=== PATIENT | female | born 1990 | race Caucasian/White ===

== ENCOUNTER 2017-06-15 13:58 | Emergency (ER) | payer MEDICAID ==
--- NOTE | 2017-06-15 14:52 | ED Physician Documentation ---
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 06/15/17 - Allergies Allergies/Adverse Reactions: Allergies Allergy/AdvReac Type Severity Reaction Status Date / Time sulfamethoxazole Allergy Unknown Verified 06/15/17 14:06 [From ] trimethoprim [From ] Allergy Unknown Verified 06/15/17 14:06 zecor Allergy Unknown Uncoded 06/15/17 14:06 - Social History Does the pt smoke?: Yes Smoking Status: Current every day smoker Does the pt drink ETOH?: Yes Does the pt have substance abuse?: No - Immunizations Immunizations are current?: No Immunizations: Other immun current PD ED PE NORMAL - Vitals Vital signs reviewed: Yes - Cardiac Cardiac: RRR, No murmur - Respiratory Respiratory: No respiratory distress, Clear bilaterally - Extremities Extremities: Other (numerous small scabbed papules to chin upper chest, to R ear lobe there is a more crusted lesion somewhat c/w impetigo) Results - Vitals Vitals: Vital Signs - 24 hr 06/15/17 14:03 Temperature 36.3 C L Heart Rate 99 Respiratory 18 Rate Blood Pressure 119/81 H O2 Saturation 100 Oxygen O2 Source Room air Departure - Departure Disposition: Home, Self Care Clinical Impression: Impetigo Condition: Good Instructions: ED Impetigo Ch Follow-Up: [facility] [Provider Group] (if not better with the antibiotic cream ) Prescriptions: Mupirocin Calcium [Bactroban] 1 applic TP BID #30 cream..g. Comments: Do not pick at the bumps or try to squeeze material out of them - that can introduce more infection. Gently wash the areas with warm water and soap. If possible avoid covering the bumps with makeup
[2017-06-15 15:15] VITALS: BP 126/73
== END 2017-06-15 15:49 | disposition home or self-care (01) ==
LOC: ED 13:58
DX: L01.00 Impetigo, unspecified (principal); F17.200 Nicotine dependence, unspecified, uncomplicated
CPT/HCPCS: 99283

== ENCOUNTER 2017-11-07 18:42 | Emergency (ER) | payer OTHER, MEDICAID ==
[2017-11-07 19:27] LABS: HCG UR QUAL NEGATIVE
[2017-11-07] MEDS ORDERED: ONDANSETRON ODT 4 MG TABLET TL STA (20:20)
[2017-11-07] MEDS ORDERED: cefTRIAXone 500 MG VIAL IM STA (20:20)
[2017-11-07] MEDS ORDERED: LIDOCAINE 1% 2 ML VIAL SUBQ ONE (20:20)
[2017-11-07] MEDS ORDERED: AZITHROMYCIN 250 MG TABLET PO STA (20:20)
[2017-11-07 20:45] LABS: MUDS CUTOFF CONCENTRATIONS CUTOFF CONC BELOW:
[2017-11-07] MEDS ORDERED: lamiVUDine/ZIDOVUDINE 150 MG/300 MG Prepack 2 PO SCH (21:00)
[2017-11-07 21:12] LABS: AMPHETAMINE SCREEN,URINE POSITIVE (NEGATIVE); BENZODIAZEPINES SCREEN, URINE NEGATIVE (NEGATIVE); COCAINE SCREEN URINE NEGATIVE (NEGATIVE); METHAMPHETAMINES SCREEN, URINE NEGATIVE (NEGATIVE); OPIATE SCREEN, URINE NEGATIVE (NEGATIVE); TRICYCLIC ANTIDEPRESSANT,URINE NEGATIVE (NEGATIVE)
[2017-11-07 21:13] LABS: METHADONE SCREEN, URINE NEGATIVE (NEGATIVE); OXYCODONE SCREEN, URINE NEGATIVE (NEGATIVE); PROPOXYPHENE SCREEN, URINE NEGATIVE (NEGATIVE)
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
[2017-11-07 22:22] VITALS: BP 133/83
[2017-11-09 13:16] LABS: HIV AG/AB 4TH GEN NON-REACTIVE (NON-REACTIVE)
== END 2017-11-07 22:46 | disposition home or self-care (01) ==
LOC: ED 18:42
DX: S10.93XA Contusion of unspecified part of neck, initial encounter (principal); T76.21XA Adult sexual abuse, suspected, initial encounter; J45.909 Unspecified asthma, uncomplicated
CPT/HCPCS: 0131C; 0132C; 36415; 80306; 81025; 87389; 87491; 87591; 96372; A9270; Q0162; 99283

== ENCOUNTER 2018-11-02 14:02 | Outpatient (CLI) | payer MEDICAID | END 2018-11-02 14:03 | disposition critical access hospital (66) | LOC: EMS 14:02 | PROVIDERS: ATTEND Surgery | DX: R46.89 Other symptoms and signs involving appearance and behavior (principal); R41.82 Altered mental status, unspecified | CPT/HCPCS: A0425; A0429; A0999 ==

== ENCOUNTER 2018-11-02 14:31 | Emergency (ER) | payer MEDICAID, OTHER ==
[2018-11-02 15:04] LABS: MUDS CUTOFF CONCENTRATIONS CUTOFF CONC BELOW:
[2018-11-02 15:07] LABS: GLUCOSE, URINE (UA) NEGATIVE (NEGATIVE); KETONES,URINE (UA) NEGATIVE (NEGATIVE); LEUKOCYTE ESTERASE, URINE NEGATIVE (NEGATIVE); NITRITE,URINE NEGATIVE (NEGATIVE); OCCULT BLOOD,URINE LARGE (NEGATIVE); PH,URINE 5.5 PH (5.0-7.5); PROTEIN,URINE 30 mg/dL (NEGATIVE); UROBILINOGEN,URINE 0.2 (NORMAL) E.U./dL (NORMAL)
--- NOTE | 2018-11-02 15:08 | ED Physician Documentation ---
PD HPI MHE - Stated complaint Stated Complaint: MHE - Chief complaint Chief Complaint: MHE - History obtained from History obtained from: Patient - History of Present Illness Primary symptom: Psychosis (not sleeping; ungroomed; erratic behavior per report. [place] PD brought her in feeling she was unable to care for herself. Pt denies psych history, but has been to drug rehab before and states meth use couple days ago and somewhat often prior to that.) Timing - onset: How many days ago (several) Contributing factors: Substance abuse - drugs, Other (It does sound like she has had a longer history of depression and some erratic behavior even unrelated to the current meth use. Unclear whether she has an underlying psychiatric disorder.) Recently seen: Not recently seen Review of Systems Constitutional: denies: Fever Nose: denies: Rhinorrhea / runny nose, Congestion Throat: denies: Sore throat Respiratory: denies: Cough GI: denies: Nausea, Vomiting : denies: Dysuria Neurologic: denies: Generalized weakness, Focal weakness, Numbness, Altered mental status (she says she is feeling okay without problems.), Headache, Head injury PD PAST MEDICAL HISTORY - Past Medical History Respiratory: Asthma Psych: None (reportedly from Mom, her issues have been substance abuse and has not had psych Dx. 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 - Present Medications Home Medications: Ambulatory Orders Medication Instructions Recorded Confirmed Etonogestrel [Nexplanon] 11/07/17 lamiVUDine/ZIDOVUDINE [Combivir] 1 each PO BID #60 tablet 11/07/17 - Allergies Allergies/Adverse Reactions: Allergies Allergy/AdvReac Type Severity Reaction Status Date / Time sulfamethoxazole Allergy Unknown Verified 11/02/18 14:48 [From ] trimethoprim [From ] Allergy Unknown Verified 11/02/18 14:48 zecor Allergy Unknown Uncoded 06/15/17 14:06 - Social History Does the pt smoke?: Yes Smoking Status: Current every day smoker Does the pt drink ETOH?: Yes Does the pt have substance abuse?: Yes Substance Use and Type: Marijuana, Meth, Heroin - Immunizations Immunizations are current?: No Immunizations: Other immun current PD ED PE NORMAL - Vitals Vital signs reviewed: Yes - General General: Alert and oriented X 3, No acute distress (seems elated and overly happy), Well developed/nourished - HEENT HEENT: Atraumatic - Neck Neck: Supple, no meningeal sign, No adenopathy - Cardiac Cardiac: RRR - Respiratory Respiratory: Clear bilaterally - Abdomen Abdomen: Soft, Non tender - Back Back: No CVA TTP - Derm Derm: Normal color, Warm and dry - Neuro Neuro: Alert and oriented X 3, No motor deficit, No sensory deficit, Normal speech - Psych Psych: No: Normal affect (elated and overly happy, seems to not understand the reasons for police concern/family concern. She feels she does not have current problem. Rather tangential thought process, with confucianism intrusion ("I just let the Lord guide me" or such). Wanting to leave ER but without plan of where she is going or how she would get to anyplace. Not aware of the day of the week. Not clearly safe.) Results - Vitals Vitals: Vital Signs - 24 hr 11/02/18 11/02/18 14:30 21:20 Temperature 36.7 C Heart Rate 88 84 Respiratory 18 16 Rate Blood Pressure 120/86 H 139/79 H O2 Saturation 100 99 Oxygen O2 Source Room air - Labs Labs: Laboratory Tests 11/02/18 11/02/18 11/02/18 14:55 14:55 15:11 WBC 7.2 RBC 4.46 Hgb 13.4 Hct 39.4 MCV 88.3 MCH 29.9 MCHC 33.9 RDW 13.0 Plt Count 294 MPV 7.6 L Neut # (Auto) 3.4 Lymph # (Auto) 2.9 Long # (Auto) 0.6 Eos # (Auto) 0.3 Baso # (Auto) 0.1 Absolute Nucleated RBC 0.00 Nucleated RBC % 0.0 Sodium Potassium Chloride Carbon Dioxide Anion Gap BUN Creatinine Estimated GFR (MDRD) Glucose Calcium Total Bilirubin AST ALT Alkaline Phosphatase Total Protein Albumin Globulin Albumin/Globulin Ratio Lipase TSH Urine Color BROWN Urine Clarity HAZY Urine pH 5.5 Ur Specific [place] 1.025 1.025 Urine Protein 30 H Urine Glucose (UA) NEGATIVE Urine Ketones NEGATIVE Urine Occult Blood LARGE H Urine Nitrite NEGATIVE Urine Bilirubin NEGATIVE Urine Urobilinogen 0.2 (NORMAL) Ur Leukocyte Esterase NEGATIVE Urine RBC TNTC H Urine WBC 0-3 Ur Squamous Epith Cells RARE Squamous Urine Bacteria None Seen Urine Mucus Moderate Strands Ur Microscopic Review INDICATED Urine Culture Comments NOT INDICATED Urine HCG, Qual NEGATIVE Salicylates Urine Opiates Screen NEGATIVE Ur Oxycodone Screen NEGATIVE Urine Methadone Screen NEGATIVE Ur Propoxyphene Screen NEGATIVE Acetaminophen Ur Barbiturates Screen NEGATIVE Ur Tricyclics Screen NEGATIVE Ur Phencyclidine Scrn NEGATIVE Ur Amphetamine Screen POSITIVE H U Methamphetamines Scrn POSITIVE H U Benzodiazepines Scrn NEGATIVE Urine Cocaine Screen NEGATIVE U Cannabinoids Screen POSITIVE H Ethyl Alcohol 11/02/18 11/02/18 15:11 15:11 WBC RBC Hgb Hct MCV MCH MCHC RDW Plt Count MPV Neut # (Auto) Lymph # (Auto) Long # (Auto) Eos # (Auto) Baso # (Auto) Absolute Nucleated RBC Nucleated RBC % Sodium 142 Potassium 3.8 Chloride 108 Carbon Dioxide 24 Anion Gap 10.0 BUN 11 Creatinine 0.8 Estimated GFR (MDRD) 85 L Glucose 83 Calcium 9.2 Total Bilirubin 1.2 H AST 21 ALT 18 Alkaline Phosphatase 53 Total Protein 7.0 Albumin 4.1 Globulin 2.9 Albumin/Globulin Ratio 1.4 Lipase 24 TSH 1.25 Urine Color Urine Clarity Urine pH Ur Specific [place] Urine Protein Urine Glucose (UA) Urine Ketones Urine Occult Blood Urine Nitrite Urine Bilirubin Urine Urobilinogen Ur Leukocyte Esterase Urine RBC Urine WBC Ur Squamous Epith Cells Urine Bacteria Urine Mucus Ur Microscopic Review Urine Culture Comments Urine HCG, Qual Salicylates < 6.0 Urine Opiates Screen Ur Oxycodone Screen Urine Methadone Screen Ur Propoxyphene Screen Acetaminophen < 10 L Ur Barbiturates Screen Ur Tricyclics Screen Ur Phencyclidine Scrn Ur Amphetamine Screen U Methamphetamines Scrn U Benzodiazepines Scrn Urine Cocaine Screen U Cannabinoids Screen Ethyl Alcohol < 5.0 PD MEDICAL DECISION MAKING - ED course Complexity details: reviewed results, considered differential (There is recent drug use and some of her symptoms certainly are probably from meth. It is unclear whether she has underlying schizoaffective disorder as she describes some depression and she does have some tangentiality and scattered thought that acts like it as well. She is brought in on a please hold for evaluation. Social work saw the patient and is unclear on her ability to care for herself at this point. She contacted the [facility] and the [facility] P will be dispatched for evaluation of the patient with potential for even dual diagnosis facility.), d/w patient, d/w business sales consultant (SW talked with patient and concerned about safety, and also there are components of her thoguth process that seem psychiatric and not just substance. Asks DMHP input and assessment. ) ED course: [place], DMHP, feels patient is not detainable. Hard to tell if some underlying psych component, but not gravely disabled. Mom contacted and she would berry picker patient (rather than going back to boyfriends house and the same drug use right now). Departure - Departure Disposition: 01 Home, Self Care Clinical Impression: Methamphetamine use, Hypomania Condition: Stable Instructions: ED Drug Abuse General Comments: Avoid drug use. Stay well hydrated. Seek help for drug use treatment. Discharge Date/Time: 11/02/18 22:58
[2018-11-02 15:15] LABS: BILIRUBIN,URINE NEGATIVE (NEGATIVE); CLARITY,URINE HAZY (CLEAR); ICTOTEST,URINE NEGATIVE
[2018-11-02 15:16] LABS: AMPHETAMINE SCREEN,URINE POSITIVE (NEGATIVE); BENZODIAZEPINES SCREEN, URINE NEGATIVE (NEGATIVE); COCAINE SCREEN URINE NEGATIVE (NEGATIVE); METHADONE SCREEN, URINE NEGATIVE (NEGATIVE); METHAMPHETAMINES SCREEN, URINE POSITIVE (NEGATIVE); OPIATE SCREEN, URINE NEGATIVE (NEGATIVE); TRICYCLIC ANTIDEPRESSANT,URINE NEGATIVE (NEGATIVE)
[2018-11-02 15:17] LABS: OXYCODONE SCREEN, URINE NEGATIVE (NEGATIVE); PROPOXYPHENE SCREEN, URINE NEGATIVE (NEGATIVE)
[2018-11-02 15:22] LABS: BACTERIA,URINE None Seen /HPF (None Seen); MUCUS,URINE Moderate Strands; RBC,URINE TNTC /HPF (0-5); SQUAMOUS EPITHELIAL CELL,UR RARE Squamous (<= Few)
[2018-11-02 15:45] LABS: BASOPHILS # (AUTO) 0.1 10^3/uL (0.0-0.1); BASOPHILS % (AUTO) 0.9 %; EOSINOPHILS # (AUTO) 0.3 10^3/uL (0.0-0.7); EOSINOPHILS % (AUTO) 3.7 %; HGB - HEMOGLOBIN 13.4 g/dL (12.0-16.0); LYMPHOCYTES # (AUTO) 2.9 10^3/uL (1.5-3.5); LYMPHOCYTES % (AUTO) 40.3 %; MEAN CORPUSCULAR HEMOGLOBIN 29.9 pg (27.0-31.0); MEAN CORPUSCULAR HGB CONC 33.9 g/dL (32.0-36.0); MEAN CORPUSCULAR VOLUME 88.3 fL (81.0-99.0); MEAN PLATELET VOLUME 7.6 fL (7.9-10.8); MONOCYTES # (AUTO) 0.6 10^3/uL (0.0-1.0); NEUTROPHILS # (AUTO) 3.4 10^3/uL (1.5-6.6); NEUTROPHILS % (AUTO) 47.1 %; PLT - PLATELET COUNT 294 10^3/uL (130-450); RED BLOOD COUNT 4.46 10^6/uL (4.20-5.40); WHITE BLOOD COUNT 7.2 x10^3/uL (4.8-10.8)
[2018-11-02] MEDS ORDERED: LORazepam 0.5 MG TABLET PO STA (16:01)
[2018-11-02 16:05] LABS: ACETAMINOPHEN < 10 ug/mL (10-30); ALBUMIN 4.1 g/dL (3.2-5.5); ALBUMIN/GLOBULIN RATIO 1.4 (1.0-2.2); ALKALINE PHOSPHATASE 53 IU/L (42-121); ALT ALANINE AMINOTRANSFERASE 18 IU/L (10-60); AST ASPARTATE AMINOTRANSFERASE 21 IU/L (10-42); BILIRUBIN,TOTAL 1.2 mg/dL (0.2-1.0); BUN - BLOOD UREA NITROGEN 11 mg/dL (6-20); CALCIUM 9.2 mg/dL (8.5-10.3); CARBON DIOXIDE - CO2 24 mmol/L (21-32); CHLORIDE 108 mmol/L (101-111); CREATININE 0.8 mg/dL (0.4-1.0); GFR - MDRD 85 (>89); GLUCOSE 83 mg/dL (70-100); LIPASE 24 U/L (22-51); SALICYLATE < 6.0 mg/dL; SODIUM 142 mmol/L (135-145)
[2018-11-02 16:49] LABS: HCG UR QUAL NEGATIVE
[2018-11-02 21:21] VITALS: BP 139/79
== END 2018-11-02 22:58 | disposition home or self-care (01) ==
LOC: EDUNIT# → ED 14:31
DX: F15.90 Other stimulant use, unspecified, uncomplicated (principal); F11.90 Opioid use, unspecified, uncomplicated; F12.90 Cannabis use, unspecified, uncomplicated; F30.8 Other manic episodes; F17.200 Nicotine dependence, unspecified, uncomplicated
CPT/HCPCS: 36415; 80053; 80306; 80307; 80320; 80329; 81001; 81025; 83690; 84443; 85025; 99283; A9270; 81003; 87086

== ENCOUNTER 2018-11-15 12:58 | Emergency (ER) | payer MEDICAID ==
[2018-11-15 13:06] VITALS: BP 129/81
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
== END 2018-11-15 13:17 | disposition home or self-care (01) ==
LOC: EDUNIT# → ED 12:58
DX: F15.929 Other stimulant use, unspecified with intoxication, unspecified (principal); F17.200 Nicotine dependence, unspecified, uncomplicated
CPT/HCPCS: 99282

== ENCOUNTER 2023-06-19 13:00 | Outpatient (CLI) | payer MEDICAID | END 2023-06-19 23:59 | disposition home or self-care (01) | LOC: LAB.S 13:00 | PROVIDERS: ATTEND Registered Nurse | DX: J03.90 Acute tonsillitis, unspecified (principal) | CPT/HCPCS: 81599; 87070; 87491; 87591; 87661 ==

== ENCOUNTER 2023-07-02 23:05 | Emergency (ER) | payer MEDICAID ==
[2023-07-02 23:57] LABS: BASOPHILS % (AUTO) 0.8 %; EOSINOPHILS # (AUTO) 0.1 10^3/uL (0.0-0.7); EOSINOPHILS % (AUTO) 1.6 %; HCT - HEMATOCRIT 40.5 % (37.0-47.0); HGB - HEMOGLOBIN 13.3 g/dL (12.0-16.0); LYMPHOCYTES # (AUTO) 1.5 10^3/uL (1.5-3.5); LYMPHOCYTES % (AUTO) 30.5 %; MEAN CORPUSCULAR HEMOGLOBIN 29.6 pg (27.0-31.0); MEAN CORPUSCULAR HGB CONC 32.8 g/dL (32.0-36.0); MEAN PLATELET VOLUME 8.5 fL (7.9-10.8); MONOCYTES # (AUTO) 0.4 10^3/uL (0.0-1.0); MONOCYTES % (AUTO) 8.3 %; NEUTROPHILS % (AUTO) 58.6 %; PLT - PLATELET COUNT 267 10^3/uL (130-450); RED CELL DISTRIBUTION WIDTH 12.2 % (12.0-15.0); WHITE BLOOD COUNT 5.1 x10^3/uL (4.8-10.8)
[2023-07-03] MEDS: diphenhydrAMINE INJ 50 MG/ML VIAL IVP STA
[2023-07-03] MEDS: METOCLOPRAMIDE 10 MG/2 ML VIAL IVP STA (00:01)
[2023-07-03] MEDS: SODIUM CHLORIDE 0.9% 1,000 ML IV STA (00:02)
[2023-07-03 00:20] LABS: ALBUMIN 4.1 g/dL (3.2-5.5); ALBUMIN/GLOBULIN RATIO 1.9 (1.0-2.2); BILIRUBIN,TOTAL 0.3 mg/dL (0.2-1.0); CALCIUM 9.2 mg/dL (8.5-10.3); CREATININE 0.7 mg/dL (0.6-1.3); POTASSIUM 3.9 mmol/L (3.5-4.5); TOTAL PROTEIN 6.3 g/dL (6.4-8.9)
--- NOTE | 2023-07-03 00:51 | ED Physician Documentation ---
History of Present Illness - Stated complaint Stated Complaint: BAEZA - Chief complaint Chief Complaint: Heent - History obtained from History obtained from: Patient - Additonal information Additional information: Patient is a 33-year-old female with a history of methamphetamine and opiate abuse presenting for evaluation of intermittent headaches that have been ongoing for the past 1 week. Patient states her current headache feels like a pressure all over her head and started sometime this afternoon. She has recently relapsed and has been using methamphetamine and fentanyl. She last used this morning. She also reports recently having some episodes where she feels like she is blacking out for an hour or 2 and cannot recall what has happened. She is unsure if she has hit her head. She does not take a blood thinner. She is on Suboxone. She has tried ibuprofen without improvement for her pain. She does report having a history of migraines in the remote past. No fever, chest pain, shortness of air, abdominal symptoms. Review of Systems Constitutional: denies: Fever Cardiac: denies: Chest pain / pressure Respiratory: denies: Dyspnea GI: denies: Abdominal Pain : denies: Dysuria Neurologic: reports: Syncope, Headache PD PAST MEDICAL HISTORY - Past Medical History Respiratory: Asthma Psych: None (reportedly from Mom, her issues have been substance abuse and has not had psych Dx. 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 - Present Medications Home Medications: Ambulatory Orders Medication Instructions Recorded Confirmed Buprenorphine HCl/Naloxone HCl 1 spray INH DAILY 07/02/23 [Suboxone 12 mg-3 mg Sl Film] - Allergies Allergies/Adverse Reactions: Allergies Allergy/AdvReac Type Severity Reaction Status Date / Time sulfamethoxazole Allergy Unknown Verified 07/02/23 23:16 [From Septra] trimethoprim [From Septra] Allergy Unknown Verified 07/02/23 23:16 [email or web address] [From [facility]] AdvReac Unknown Verified 07/02/23 23:16 - Social History Does the pt smoke?: Yes Smoking Status: Current every day smoker Does the pt drink ETOH?: Yes Does the pt have substance abuse?: Yes - Immunizations Immunizations are current?: No Immunizations: Other immun current PD ED PE NORMAL - General General: Alert and oriented X 3, No acute distress, Well developed/nourished, Other (Tolerating bright lights on in the exam room) - HEENT HEENT: Atraumatic, PERRL, EOMI, Moist mucous membranes, Pharynx benign - Neck Neck: Supple, no meningeal sign, No bony TTP - Cardiac Cardiac: RRR, Strong equal pulses - Respiratory Respiratory: No respiratory distress, Clear bilaterally - Abdomen Abdomen: Normal bowel sounds, Soft, Non tender, Non distended - Derm Derm: Warm and dry - Neuro Neuro: Alert and oriented X 3, 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 Relevant findings are: Rate 93, normal sinus rhythm, no STEMI, QTc 476 - Labs Labs: Laboratory Tests 07/02/23 07/02/23 07/03/23 23:43 23:43 02:00 WBC 5.1 RBC 4.50 Hgb 13.3 Hct 40.5 MCV 90.0 MCH 29.6 MCHC 32.8 RDW 12.2 Plt Count 267 MPV 8.5 Neut # (Auto) 3.0 Lymph # (Auto) 1.5 [place] # (Auto) 0.4 Eos # (Auto) 0.1 Baso # (Auto) 0.0 Absolute Nucleated RBC 0.00 Nucleated RBC % 0.0 Sodium 138 Potassium 3.9 Chloride 106 Carbon Dioxide 27 Anion Gap 5.0 L BUN 13 Creatinine 0.7 Estimated GFR (MDRD) 96 Glucose 76 Calcium 9.2 Total Bilirubin 0.3 AST 16 ALT 16 Alkaline Phosphatase 58 Total Protein 6.3 L Albumin 4.1 Globulin 2.2 Albumin/Globulin Ratio 1.9 Urine HCG, Qual NEGATIVE PD Medical Decision Making - ED course Complexity details: reviewed results, re-evaluated patient, d/w patient ED course: Patient is a 33-year-old female presenting for evaluation of headache that has been intermittent for the past 1 week. Patient also reports relapsing on methamphetamine and fentanyl use. Also reports having periods where she feels like she may have blacked out. Reports severe headache despite use of ibuprofen Given possibility of unknown trauma I did obtain a CT of her head. It is negative for signs of intracranial hemorrhage. She is feeling better here after Reglan and Benadryl and fluids. CBC and chemistries unremarkable. EKG is nonischemic and with no arrhythmia. test is negative. She is feeling much better and would like to go home. Patient given resources for substance abuse. She is counseled on concerning symptoms to return for. Departure - Departure Disposition: 01 Home, Self Care Clinical Impression: Headache, Syncope, Substance abuse Condition: Stable Instructions: ED Drug Abuse General, ED Headache Tension, ED Fainting Unkn Cause Comments: The CT scan of your head does not show any injuries or bleeding. Your labs are without any significant abnormalities. There are resources available for your substance abuse - This includes a local detox facility which I have listed information for below. Return to the ER with any worsening symptoms. [facility] [address] [place] [address] Main The Counts Include 234 Beds At The [facility] offers a monitored and safe setting for individuals withdrawing from alcohol and drugs, and counseling for individuals experiencing a mental health crisis. All services are provided in a 10-bed facility where intensive medical monitoring is required along with s tabilization services. The goal of these services is to assess a clients mental health and substance use disorder related needs, and assist them in accessing the services they need to recover. Forms: PCP List Discharge Date/Time: 07/03/23 02:34
--- NOTE | 2023-07-03 01:10 | CT Report ---
PROCEDURE: Head WO INDICATIONS: headache/syncope/meth use/unsure of head injury TECHNIQUE: Noncontrast 4.5 mm thick angled axial sections acquired from the foramen magnum to the vertex. For r adiation dose reduction, the following was used: automated exposure control, adjustment of mA and/or kV according to patient size. COMPARISON: None. FINDINGS: Image quality: Diagnostic. CSF spaces: Basal cisterns are patent. No extra-axial fluid collections. Ventricles are normal in size and shape. Brain: No midline shift. No intracranial masses or hemorrhage. Gallegos-white matter interface is norm al. Skull and face: Calvarium and visualized facial bones are intact, without suspicious lesions. Sinuses: Visualized sinuses and mastoids are clear. IMPRESSION: No acute intracranial pathology. Reviewed by: Lissett Monique MD on 07/03/2023 1:09 AM PST Approved by: Lissett Monique MD on 07/03/2023 1:09 AM [facility] Station ID: [id number]
[2023-07-03 02:20] LABS: HCG UR QUAL NEGATIVE
[2023-07-03 02:37] VITALS: BP 132/78; O2SAT 98
== END 2023-07-03 02:34 | disposition home or self-care (01) ==
LOC: ED 23:05
DX: R51.9 Headache, unspecified (principal); R55 Syncope and collapse; F19.10 Other psychoactive substance abuse, uncomplicated; F17.200 Nicotine dependence, unspecified, uncomplicated
CPT/HCPCS: 36415; 70450; 80053; 81025; 85025; 93005; 96374; 96375; 99284; J1200; J2765; 84703